=== PATIENT | female | born 1960 ===

== ENCOUNTER 2024-02-22 10:49 | Outpatient (CLI) | payer MEDICARE, SELFPAY ==
[2024-02-22 11:26] LABS: Hematocrit 39.9 % (35.0-49.0); Hemoglobin 13.3 g/dL (12.0-15.0); Mean Corpuscular HGB Conc 33.3 g/dL (32-36); Mean Corpuscular Hemoglobin 30.4 pg (27.0-31.0); Mean Corpuscular Volume 91.1 fL (78.0-102.0); Mean Platelet Volume 9.6 fl (9.2-11.8); Platelet Count Result 331 K/mm3 (150-420); Red Blood Count 4.38 M/mm3 (4.20-5.40); Red Cell Distribution Width 12.2 % (11.6-14.4); White Blood Count 10.1 K/mm3 (4.8-10.8)
[2024-02-22 12:18] LABS: Alanine Aminotransferase 25 U/L (14-59); Albumin Level 3.9 g/dL (3.4-5.0); Alkaline Phosphatase 54 U/L (46-116); Anion Gap 9 mmol/L (4-12); Aspartate Amino Transferase 20 U/L (15-37); Bilirubin,Total 0.3 mg/dL (0.00-1.00); Blood Urea Nitrogen 11 mg/dL (7-18); Calcium 9.2 mg/dL (8.5-10.1); Carbon Dioxide 29 mmol/L (21-32); Chloride 99 mmol/L (98-108); Cholesterol 222 mg/dL (0-200); Estimated Glomerular Filt Rate > 60; Glucose 100 mg/dL (70-99); HDL Direct 75 mg/dL (40-60); LDL Cholesterol Calculated 130 mg/dL (<130); Osmolality Calculated 283 mOsm/kg (285-295); Potassium 4.1 mmol/L (3.5-5.1); Sodium 137 mmol/L (136-145); Thyroid Stimulating Hormone 0.86 uIU/mL (0.36-3.74); Total Protein 7.3 g/dL (6.4-8.2); Triglycerides 87 mg/dL (0-150); Vitamin B12 793 pg/mL (193-986)
[2024-02-22 12:19] LABS: Folic Acid > 20.0 ng/mL (8.6->20)
== END 2024-02-22 10:50 | disposition home or self-care (01) ==
PROVIDERS: PCP Family Medicine; Visit Provider Family Medicine
DX: R63.4 Abnormal weight loss (principal); R35.0 Frequency of micturition; Z13.6 Encounter for screening for cardiovascular disorders
CPT/HCPCS: 36415; 80053; 80061; 82607; 82746; 84443; 85027; 87077; 87086; 87088

== ENCOUNTER 2024-05-05 07:45 | Emergency (ER) | payer MEDICARE, MEDICAID, SELFPAY ==
[2024-05-05 07:45] VITALS: BP 135/77; PULSE 74; RESP 24; TEMP 36.2; O2SAT 98
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
[2024-05-05] MEDS: ALPRAZolam (*CRX) 0.5 MG TABLET PO (08:20)
== END 2024-05-05 08:28 | disposition home or self-care (01) ==
LOC: CHSED 08:25
PROVIDERS: Emergency Provider Emergency Medicine; PCP Family Medicine
DX: F41.0 Panic disorder [episodic paroxysmal anxiety] (principal); F41.9 Anxiety disorder, unspecified
CPT/HCPCS: 99283; A9270